=== PATIENT | male | born 1955 | race Caucasian/White ===

== ENCOUNTER 2017-07-02 09:14 | Outpatient (CLI) | payer OTHER | END 2017-07-02 09:15 | disposition home or self-care (01) | LOC: SC 09:14 | PROVIDERS: ATTEND Internal Medicine Pulmonary Disease | DX: G47.33 Obstructive sleep apnea (adult) (pediatric) (principal); G47.61 Periodic limb movement disorder | CPT/HCPCS: 99212; 99213 ==

== ENCOUNTER 2017-07-30 14:11 | Outpatient (CLI) | payer OTHER | END 2017-07-30 14:12 | disposition home or self-care (01) | LOC: SC 14:11 | PROVIDERS: ATTEND Internal Medicine Pulmonary Disease | DX: G47.33 Obstructive sleep apnea (adult) (pediatric) (principal); G47.61 Periodic limb movement disorder; G25.81 Restless legs syndrome | CPT/HCPCS: 99212; 99213 ==

== ENCOUNTER 2018-09-16 09:08 | Outpatient (CLI) | payer OTHER | END 2018-09-16 09:09 | disposition home or self-care (01) | LOC: SC 09:08 | PROVIDERS: ATTEND Internal Medicine Pulmonary Disease | DX: G47.33 Obstructive sleep apnea (adult) (pediatric) (principal) | CPT/HCPCS: 99212; 99213 ==

== ENCOUNTER 2022-12-11 10:43 | Outpatient (CLI) | payer MEDICARE, OTHER ==
[2022-12-11 12:08] VITALS: BP 148/90
--- NOTE | 2022-12-11 12:08 | SLEEP CARE CONSULTATION ---
Information from patient questionnaire entered by Juanita Ley. I have reviewed and concur with the information entered by Juanita Ley. This document represents the service I personally performed and the decisions made by me, Flavio Hendrickson MD, [facility]. History of Present Illness Service Date and Time: 12/11/2022 1043 Reason for Visit: New patient Chief Complaint: reports: Other (TRANSFER) Usual bedtime: BEFORE 10PM Time it takes to fall asleep: 15MIN Snores at night: Yes Observed to quit breathing while asleep: Yes Sleeps alone due to snoring: Yes Number of times waking at night: 2 Reasons for waking at night: reports: Pain, Bathroom Toss, Turn, or Twitch while sleeping: Yes Recalls having dreams: Yes Usually gets out of bed at: 430-5AM Feels refreshed in the morning: Yes Morning headache: No Sleepy or fatigued during the day: No Ever fallen asleep while driving: No Takes day naps: No Year and Where: [facility] Additional HPI information: Mr. Ramos was diagnosed to have mild obstructive sleep apnea-hypopnea syndrome and returns today for annual follow up of CPAP therapy. The patient was last seen here in 2019 but he transferred to [facility] sleep center. He returned because the sleep center closed a few months ago. He was prescribed a new CPAP there. The machine he has is a Resvent iBreeze autoCPAP. He said he did not like the auto setting and had it set at a straight pressure, probably 13 cmH2O. The compliance/efficacy report is not available because Resvent website is down. He says he uses it every night and all night. He continues to get supplies from [employer]. He wears the ResMed P10 nasal pillows. 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 Patient is and lives in [place]. Have you smoked in the past 12 months: No Alcohol use: Yes Alcohol amount and frequency: 1-2 DAILY Caffeine use: Yes Caffeine amount and frequency: 23 DAILY Family History Family history of sleep disordered breathing: No Allergies and Home Medications Known drug allergies: No Drug allergies reviewed: Yes Home medication list reviewed: Yes Review of Systems Review of systems same as previous: Yes Weight gain over past 5 years: 30 Respiratory: reports: chronic cough Urinary: reports: incontinence, frequency, urgency Ear/Nose/Throat: reports: dry mouth/throat, tonsillectomy, wisdom teeth removed Musculoskeletal: reports: joint pain, mobility problems Physical Exam Vital signs obtained and entered by: JUANITA Eldridge MA Blood Pressure: 148/90 (LEFT ARM) Cuff size: regular Heart Rate: 68 O2 Saturation: 97 Height: 5 ft 10 in Weight: 274 lb 12.8 oz Body Mass Index: 39.4 BMI Classification: Obese Neck circumference: 18.75 Impression and Plan IMPRESSION: 1. Obstructive Sleep Apnea-Hypopnea Syndrome, mild, with the patient using his Resvent iBreeze CPAP regularly. He will try to download the data at home and fax us the report. He also will be getting a replacement machine from [employer]. PLAN: 1. Prescription made supplies. 2. Try to lose weight 3. Continue with CPAP set at 13 cmH2O. If he gets a new machine from [employer], I will set it to the same pressure. 4. Return for follow up in a year or earlier if there is any problem. Counseling Topics: Weight control Prescriptions: Device supplies Follow up with Sleep Care in: 1 year Visit Type: In Office Time Spent with Patient (minutes): 15 Provider Statement: I spent 100% of the Face to Face Visit with the patient with greater than 50% spent counseling the patient and coordination of care.
== END 2022-12-11 10:44 | disposition home or self-care (01) ==
LOC: SC 10:43
PROVIDERS: ATTEND Internal Medicine Pulmonary Disease
DX: G47.33 Obstructive sleep apnea (adult) (pediatric) (principal); E66.9 Obesity, unspecified; Z68.39 Body mass index [BMI] 39.0-39.9, adult
CPT/HCPCS: 99202; G0463; 99212

== ENCOUNTER 2023-12-24 15:34 | Outpatient (CLI) | payer MEDICARE, OTHER ==
--- NOTE | 2023-12-24 21:55 | SLEEP CARE CONSULTATION ---
Information from patient questionnaire entered by Juanita Ley. I have reviewed and concur with the information entered by Juanita Ley. This document represents the service I personally performed and the decisions made by me, Flavio Hendrickson MD, [facility]. History of Present Illness Service Date and Time: 12/24/2023 1534 Reason for follow up: annual (LAST SEEN 11/2022) Equipment type: CPAP (NEED MACHINE) Year and Where: [facility] HPI additional information: Mr. Ramos was diagnosed to have mild obstructive sleep apnea-hypopnea syndrome and returns today for follow up of CPAP therapy. The patient is now using a [employer] DreamStation 1 CPAP that came to him a the replacement for his older machine. He has a ResVent machine that he is not using. He wears the ResMed P10 nasal pillows. He uses the device nightly and all through the night. The compliance report shows that he uses the device 180 nights out of the past 180 nights, averaging 7.2 hours a night. He complains of no particular problem with the device such as soreness on the face, dry nose, epistaxis, nasal congestion or headache. He thinks that the pressure of 13 cmH2 O is comfortable. On the CPAP therapy he notices improvement in his sleep quality, and that he wakes up feeling fresher in the morning and more awake/alert during the day. His notices no snore at all. The average residual AHI is 1.0; and average time in large leak per day is 2 minutes a night. Sleep Study - Results Year and Where: [employer] [facility] Subjective Initial [place] Sleepiness Scale score: 1 (12/11/22) Current [place] Sleepiness Scale score: 2 (12/24/23) Allergies and Home Medications Drug allergies reviewed: Yes Home medication list reviewed: Yes Review of Systems Review of systems same as previous: Yes (OAB) Physical Exam Vital signs obtained and entered by: JUANITA Eldridge MA Blood Pressure: 148/74 (LEFT ARM) Cuff size: long Heart Rate: 72 O2 Saturation: 96 Height: 5 ft 10 in Weight: 263 lb 6.4 oz Body Mass Index: 37.8 BMI Classification: Obese Impression and Plan IMPRESSION: 1. Obstructive Sleep Apnea-Hypopnea Syndrome, mild (AHI was 7.2 in 2012) with the patient continuing to do well on nasal CPAP therapy. He has excellent compliance and significant clinical benefits. The current pressure appears effective and comfortable. Overall, he is very satisfied with treatment and plans to continue with it long-term. No adjustment is necessary today. PLAN: 1. Continue with CPAP set at 13 cm H2O. 2. Try to lose weight 3. Return in one year for follow up or earlier if there is any problem with the treatment. Counseling Topics: Weight control Follow up with Sleep Care in: 1 year Follow up recommended for: Weight management Visit Type: In Office Time Spent with Patient (minutes): 15 Provider Statement: I spent 100% of the Face to Face Visit with the patient with greater than 50% spent counseling the patient and coordination of care.
[2023-12-24 21:59] VITALS: BP 148/74; O2SAT 96
== END 2023-12-24 15:35 | disposition home or self-care (01) ==
LOC: SC 15:34
PROVIDERS: ATTEND Internal Medicine Pulmonary Disease
DX: G47.33 Obstructive sleep apnea (adult) (pediatric) (principal); E66.9 Obesity, unspecified; Z68.37 Body mass index [BMI] 37.0-37.9, adult
CPT/HCPCS: 99212; G0463